=== PATIENT | male | born 1965 | race Caucasian/White ===

== ENCOUNTER 2020-11-14 21:25 | Emergency (ER) | payer BC ==
[~2020-11-14] VITALS: Ht 188 cm; Wt 125.0 kg
[2020-11-14] MEDS ORDERED: ACETAMINOPHEN 325MG TABLET PO ONE (22:45)
[2020-11-14] MEDS ORDERED: TETRACAINE 0.5% OPHTH DROPS 4ML RIGHTEYE ONE (22:45)
[2020-11-14] MEDS ORDERED: FLUORESCEIN SODIUM 1MG/STRIP RIGHTEYE ONE (22:45)
[2020-11-14] MEDS ORDERED: AMOX-424 MT (23:37)
[2020-11-14] MEDS ORDERED: TRIMO RIGHTEYE (23:37)
[2020-11-15 00:02] VITALS: BP 158/71
== END 2020-11-15 00:02 | disposition home or self-care (01) ==
LOC: ER 21:50
DX: S01.111A Laceration without foreign body of right eyelid and periocular area, initial encounter (principal); W54.0XXA Bitten by dog, initial encounter; Y93.9 Activity, unspecified; Y92.9 Unspecified place or not applicable; Z88.0 Allergy status to penicillin
CPT/HCPCS: 12011; 99283; Z7610